=== PATIENT | male | born 1930 | race Caucasian/White ===

== ENCOUNTER 2016-09-09 17:36 | Inpatient (IN) | payer MEDICARE ==
[2016-09-09 18:38] LABS: BASO # 0.1 K/uL (0.0-0.2); BASO % 0.6 % (0.0-2.0); EOS # 0.1 K/uL (0.0-0.7); EOS % 0.9 % (0.0-4.0); HEMOGLOBIN 15.1 g/dL (12.0-18.0); LYMPH # 0.9 K/uL (1.0-4.3); MEAN CELL VOLUME 84.4 fl (80.0-94.0); MEAN CORPUSCULAR HEMOGLOBIN 29.1 pg (27.0-31.0); MEAN CORPUSCULAR HGB CONC 34.5 g/dL (33.0-37.0); MEAN PLATELET VOLUME 8.8 fl (7.2-11.7); MONO # 0.8 K/uL (0.0-0.8); MONO % 9.8 % (0.0-10.0); NEUT # 6.8 K/uL (1.8-7.0); NEUT % 78.7 % (50.0-75.0); NRBC % 0.2 % (0.0-0.0); RBC 5.2 Mil/uL (4.40-5.90); RED CELL DISTRIBUTION WIDTH 14.6 % (11.5-14.5); WHITE BLOOD COUNT 8.6 K/uL (4.8-10.8)
[2016-09-09 18:55] LABS: ALB/GLOB RATIO 1.3 (1.0-2.1); ALBUMIN 4.2 g/dL (3.5-5.0); ALT/SGPT 30 U/L (21-72); AST/SGOT 13 U/L (17-59); BLOOD UREA NITROGEN 22 mg/dl (9-20); CALCIUM 9.2 mg/dL (8.4-10.2); GFR AFRICAN-AMERICAN > 60; GFR NON-AFRICAN AMERICAN > 60
[2016-09-09 19:06] LABS: INR 1.2 (0.9-1.2); PARTIAL THROMBOPLASTIN TIME 38.3 Seconds (25.6-37.1); PROTHROMBIN TIME 13.7 Seconds (9.8-13.1)
--- NOTE | 2016-09-09 19:15 | ED PDOC ---
HPI: Altered Mental Status Time Seen by Provider: 09/09/16 18:07 Chief Complaint (Nursing): Altered Mental Status Chief Complaint (Provider): Altered mental status History Per: EMS History/Exam Limitations: Clinical Condition Onset Of Symptoms: Cannot Confirm Onset Additional Complaint(s): The patient is a 87yo male, brought in by EMS for evaluation after discovering the patient wandering and unable to give his name or history. EMS serve as primary historian and are unable to provide medical history, family history and social history. HPI is limited due to clinical condition. Past Medical History Reviewed: Unable To Obtain Vital Signs: Last Vital Signs Temp 97.6 F 09/09/16 18:16 Pulse 86 09/09/16 18:16 Resp 18 09/09/16 18:16 BP 142/64 09/09/16 18:16 Pulse Ox 98 09/09/16 18:16 - Family History Family History: States: Unknown Family Hx - Home Medications Home Medications: Ambulatory Orders Medication Instructions Recorded Unobtainable 09/09/16 - Allergies Allergies/Adverse Reactions: Allergies Allergy/AdvReac Type Severity Reaction Status Date / Time No Known Allergies Allergy Verified 09/09/16 23:49 Review of Systems Review Of Systems: ROS cannot be obtained secondary to pt's inabilty to answer questions. Physical Exam - Reviewed Nursing Documentation Reviewed: Yes Vital Signs Reviewed: Yes - Physical Exam Appears: Positive for: Well (no signs of gross trauma) Cardiovascular/Chest: Positive for: Chest Non Tender Respiratory: Positive for: Normal Breath Sounds Gastrointestinal/Abdominal: Negative for: Tenderness, Guarding Extremity: Positive for: Normal ROM. Negative for: Deformity Neurologic/Psych: Positive for: Alert, Oriented ( x 0), Gait (steady) - Laboratory Results Result Diagrams: 09/10/16 11:20 09/10/16 11:28 - ECG O2 Sat by Pulse Oximetry: 98 Medical Decision Making Medical Decision Making: Time: 1806 Impression: Altered mental status Plan: -- CT head -- Labs -- EKG Reassess Time: 1899 Patient to be signed out to Dr. Vidales pending ED workup. Scribe Attestation: Documented by Marry Hodges acting as a scribe for Randell Mohan DO. Provider Attestation: All medical record entries made by the Scribe were at my direction and personally dictated by me. I have reviewed the chart and agree that the record accurately reflects my personal performance of the history, physical exam, medical decision making, and the department course for this patient. I have also personally directed, reviewed, and agree with the discharge instructions and disposition. Disposition - Clinical Impression Clinical Impression: Acute on chronic intracranial subdural hematoma, Altered mental status - Patient ED Disposition Is Patient to be Admitted: Transfer of Care - Disposition Disposition: Transfer of Care Disposition Time: 19:00 Condition: SERIOUS Patient Signed Over To: Elmer Vidales Handoff Comments: pending imaging and workup/dispo
--- NOTE | 2016-09-09 20:09 | ED PDOC ---
- Laboratory Results Result Diagrams: 09/09/16 18:34 09/09/16 18:34 - ECG O2 Sat by Pulse Oximetry: 98 - Critical Care Total Time (In Min): 30 Medical Decision Making Medical Decision Making: Receiving sign out: Patient signed out to me by Dr. Mohan at 1900 pending ED workup. Scribe Attestation: Documented by Marry Hodges acting as a scribe for Elmer Vidales MD. Provider Attestation: All medical record entries made by the Scribe were at my direction and personally dictated by me. I have reviewed the chart and agree that the record accurately reflects my personal performance of the history, physical exam, medical decision making, and the department course for this patient. I have also personally directed, reviewed, and agree with the discharge instructions and disposition. Disposition - Clinical Impression Clinical Impression: Acute on chronic intracranial subdural hematoma, Altered mental status - POA Present On Arrival: None - Disposition Disposition: Admitted as In-Patient Disposition Time: 20:40 Condition: SERIOUS Progress Note - Review of Symptoms Events since last encounter: Time: 2025 CT Head FINDINGS: Brain: There is prominence of sulci gyri and ventricles. There is no midline shift. There is decreased attenuation in periventricular white matter. There are no focal masses. There is an acute on chronic right subdural hematoma. Maximum width is approximately 8.5 mm, image 40 series 4 There is a smaller left acute on chronic subdural hematoma. There are no intra-axial hemorrhages. Aguirre-white differentiation is visualized Ventricles: See above Bones: Cranial vault is intact. Soft tissues: unremarkable Sinuses: There is no acute sinusitis. There is mucoperiosteal thickening in the sinuses. Ears and mastoids: Middle ears and mastoids are unremarkable. Orbits: Orbital contents are unremarkable. IMPRESSION: Atrophy and small vessel disease; acute on chronic subdural hematomas right greater than left, no midline shift Call placed to neurosurgeon chemicals fermentation operator. Time: [address] Gonzalez and no acute intervention needed. Time: 2035 Dr. Crouch, patient's pcp was informed of patient's status, agrees with admission to ICU. Time: [address] Souza, who agrees with ICU admission.
--- NOTE | 2016-09-09 20:27 | CT ---
EXAM: CT Head Without Intravenous Contrast CLINICAL HISTORY: 87 years old, male; Signs and symptoms; Altered mental status/memory loss; Confusion or disorientation; Patient HX: ? ? ? ; Additional info: AMS. Patient was found wondering about TECHNIQUE: Axial computed tomography images of the head/brain without intravenous contrast. This CT exam was performed using one or more of the following dose reduction techniques: automated exposure control, adjustment of the mA and/or kV according to patient size, and/or use of iterative reconstruction technique. Coronal and sagittal reformatted images were created and reviewed. EXAM DATE/TIME: 09/09/2016 6:32 PM COMPARISON: There are no prior studies for comparison. FINDINGS: Brain: There is prominence of sulci gyri and ventricles. There is no midline shift. There is decreased attenuation in periventricular white matter. There are no focal masses. There is an acute on chronic right subdural hematoma. Maximum width is approximately 8.5 mm, image 40 series 4 There is a smaller left acute on chronic subdural hematoma. There are no intra-axial hemorrhages. Aguirre-white differentiation is visualized Ventricles: See above Bones: Cranial vault is intact. Soft tissues: unremarkable Sinuses: There is no acute sinusitis. There is mucoperiosteal thickening in the sinuses. Ears and mastoids: Middle ears and mastoids are unremarkable. Orbits: Orbital contents are unremarkable. IMPRESSION: Atrophy and small vessel disease; acute on chronic subdural hematomas right greater than left, no midline shift
--- NOTE | 2016-09-09 21:23 | CP.PCM.CON ---
History of Present Illness - History of Present Illness History of Present Illness: CC/Reason for ICU: AMS, ICH Patient confused and Yakut speaking; history via staff and from chart largely as patient does not provide much info HPI: This is an 86 y/o male who was brought in by EMS after being found wandering around confused outside. Patient does not complain of anything at this time, aside from not wanting BP cuff on. MHx/SHx: Unknown at this time, as patient cannot provide Allergies: U/k Medication list: unobtainable Family/Social Hx: unobtainable Surrogate Dec Mkr: Currently in process of contacting family Past Patient History - Past Social History Smoking Status: Unknown If Ever Smoked - PSYCHIATRIC Hx Substance Use: No Meds Allergies/Adverse Reactions: Allergies Allergy/AdvReac Type Severity Reaction Status Date / Time Unobtainable Allergy Verified 09/09/16 17:44 Physical Exam - Constitutional Appears: Confused - Head Exam Head Exam: ATRAUMATIC, NORMOCEPHALIC - Eye Exam Eye Exam: EOMI, PERRL - ENT Exam ENT Exam: Mucous Membranes Moist - Neck Exam Neck exam: Positive for: Full Rom - Respiratory Exam Respiratory Exam: Clear to Auscultation Bilateral, NORMAL BREATHING PATTERN - Cardiovascular Exam Cardiovascular Exam: REGULAR RHYTHM, +S1, +S2 - GI/Abdominal Exam GI & Abdominal Exam: Normal Bowel Sounds, Soft - Extremities Exam Extremities exam: Positive for: full ROM, normal inspection - Neurological Exam Additional comments: awake, follows some commands, but is confused; no gross motor deficits - Skin Skin Exam: Dry, Warm Results - Vital Signs Recent Vital Signs: Last Vital Signs Temp 97.5 F L 09/09/16 20:30 Pulse 77 09/09/16 21:04 Resp 18 09/09/16 21:04 BP 126/58 L 09/09/16 21:04 Pulse Ox 95 09/09/16 21:04 - Labs Result Diagrams: 09/09/16 18:34 09/09/16 18:34 - EKG Data EKG Interpreted by: Myself EKG shows normal: Sinus rhythm Rate: Normal - Impressions Impression: L axis deviation - Imaging and Cardiology CT scan - head Status: Image reviewed by me, Report reviewed by me (acute on chronic SDH; no mass effect, no midline shift) Assessment & Plan (1) SDH (subdural hematoma) Assessment and Plan: 86 y/o male with as yet unknown medical history presenting with confusion and found to have SDH. Currently, grossly neuro intact. -Admit ICU -Keep NPO for now, until more coherent -Serial neuro exams -Repeat CT in AM -Neurosurg consulted (Lisa notified by ER) -Maintain SBP < 140 -SCDs only for DVT PPx Status: Acute
[2016-09-09 23:33] LABS: SQUAMOUS EPITHIAL < 1 /hpf (0-5); URINE BACTERIA RARE (<OCC); URINE BILIRUBIN NEGATIVE (NEGATIVE); URINE BLOOD MODERATE (NEGATIVE); URINE CLARITY CLOUDY (Clear); URINE COLOR YELLOW (YELLOW); URINE GLUCOSE (UA) NEG (Normal); URINE HYALINE CAST 0-2 /hpf (0-2); URINE LEUKOCYTE ESTERASE NEG Leu/uL (Negative); URINE NITRATE NEGATIVE (NEGATIVE); URINE PROTEIN 30 mg/dL (NEGATIVE)
--- NOTE | 2016-09-10 01:23 | CP.PCM.PN ---
Subjective - Date & Time of Evaluation Date of Evaluation: 09/10/16 Time of Evaluation: 01:22 - Subjective Subjective: reviewed ct minimal alexia sdh significant atrophy these are too small to consider for evacuatiuon Objective - Vital Signs/Intake and Output Vital Signs (last 24 hours): Temp Pulse Resp BP Pulse Ox 96 F L 73 17 110/46 L 100 09/09/16 23:07 09/10/16 00:00 09/10/16 00:00 09/10/16 00:00 09/10/16 00:00 - Labs Labs: PT 13.7 Seconds (9.8-13.1) H 09/09/16 18:34 INR 1.2 (0.9-1.2) 09/09/16 18:34 APTT 38.3 Seconds (25.6-37.1) H 09/09/16 18:34
--- NOTE | 2016-09-10 10:08 | CARD ---
APPROVED REPORT EKG Measurement Heart [id number] FL 200P23 [id number] <Conclusion> Normal sinus rhythm Left axis deviation Moderate voltage criteria for LVH, may be normal variant Abnormal ECG
[2016-09-10 11:35] LABS: HEMOGLOBIN 13.3 g/dL (12.0-18.0); MEAN CELL VOLUME 83.9 fl (80.0-94.0); MEAN CORPUSCULAR HEMOGLOBIN 29.1 pg (27.0-31.0); MEAN CORPUSCULAR HGB CONC 34.7 g/dL (33.0-37.0); RBC 4.56 Mil/uL (4.40-5.90); RED CELL DISTRIBUTION WIDTH 14.8 % (11.5-14.5)
[2016-09-10 11:55] LABS: BLOOD UREA NITROGEN 20 mg/dl (9-20); CALCIUM 8.6 mg/dL (8.4-10.2); GFR AFRICAN-AMERICAN > 60; GFR NON-AFRICAN AMERICAN > 60
[2016-09-10 12:15] LABS: SQUAMOUS EPITHIAL 1 /hpf (0-5); URINE BACTERIA RARE (<OCC); URINE BILIRUBIN NEGATIVE (NEGATIVE); URINE BLOOD LARGE (NEGATIVE); URINE CLARITY CLOUDY (Clear); URINE COLOR AMBER (YELLOW); URINE GLUCOSE (UA) NEG (Normal); URINE LEUKOCYTE ESTERASE MOD Leu/uL (Negative); URINE NITRATE NEGATIVE (NEGATIVE); URINE PROTEIN 100 mg/dL (NEGATIVE)
--- NOTE | 2016-09-10 13:12 | CT ---
PROCEDURE: CT HEAD WITHOUT CONTRAST. HISTORY: ICH COMPARISON: None available. TECHNIQUE: Axial computed tomography images were obtained through the head/brain without intravenous contrast. Radiation dose: Total exam DLP = 1419.18 mGy-cm. This CT exam was performed using one or more of the following dose reduction techniques: Automated exposure control, adjustment of the mA and/or kV according to patient size, and/or use of iterative reconstruction technique. FINDINGS: HEMORRHAGE: There are bilateral acute on chronic convexity subdural hemorrhages, right greater than left. The right-sided subdural hemorrhage measures approximately 9 mm in width, unchanged from prior examination. This is measured from series 602, image 47. The left-sided subdural hemorrhage measures up to 6 mm as measured from series 602, image 42. Again, this is unchanged from prior. Please note that the angle of section for these 2 examinations is quite different comparison is somewhat limited. There is a small focal hemorrhage seen along the lateral aspect of the right temporal lobe (series 4, image 34). In retrospect, this is seen on prior examination. It is increased in attenuation and this is suggestive of acute focal hemorrhage. However, it has not increased in size from the prior examination. This may represent a small focal parenchymal contusion/hematoma. It is atypical in appearance for a subdural hemorrhage. BRAIN: No intracranial mass. Mild to moderate diffuse atrophy. Mild periventricular white matter lucency consistent with chronic microvascular ischemic change. VENTRICLES: Unremarkable. No hydrocephalus. CALVARIUM: Unremarkable. PARANASAL SINUSES: Mild chronic bilateral maxillary sinusitis. MASTOID AIR CELLS: Unremarkable as visualized. No inflammatory changes. OTHER FINDINGS: None. IMPRESSION: Stable bilateral acute on chronic convexity subdural hematomas. Slightly greater on the right than on the left. Small focal hemorrhage lateral aspect right temporal lobe, possibly parenchymal. This represents acute hemorrhage and is increased in attenuation when compared to the prior examination of 09/09/2016. However, it has not increased in size/extent from that examination. No other acute hemorrhage identified. Chronic involutional change. Chronic bilateral maxillary sinusitis.
--- NOTE | 2016-09-10 14:53 | CP.PCM.HP ---
History of Present Illness - History of Present Illness History of Present Illness: Mr. Granger is an 86 y/o male with PMH of htn severe OA. He was seen in my office less than 2 weeks ago for routine f/u. At that time he was AAOx3. He was who was brought in by EMS after being found wandering around confused outside. A CT scan reveled a SDH. At present he is confuse, AA. Present on Admission - Present on Admission Any Indicators Present on Admission: Yes Review of Systems - Constitutional Constitutional: As Per HPI - EENT Eyes: As Per HPI - Cardiovascular Cardiovascular: As Per HPI - Respiratory Respiratory: As Per HPI - Gastrointestinal Gastrointestinal: As Per HPI - Musculoskeletal Musculoskeletal: As Per HPI - Integumentary Integumentary: As Per HPI - Neurological Neurological: As Per HPI - Psychiatric Psychiatric: As Per HPI Past Patient History - Past Medical History & Family History Past Medical History?: Yes - Past Social History Smoking Status: Never Smoked - CARDIAC Hx Cardiac Disorders: Yes (HTN) Hx Hypertension: Yes - PULMONARY Hx Respiratory Disorders: No - NEUROLOGICAL Hx Neurological Disorder: No - HEENT Hx HEENT Problems: No - RENAL Hx Chronic Kidney Disease: No - ENDOCRINE/METABOLIC Hx Endocrine Disorders: No - HEMATOLOGICAL/ONCOLOGICAL Hx AIDS: No Hx Blood Transfusions: Yes Hx Blood Transfusion Reaction: No Hx Human Immunodeficiency Virus (HIV): No - INTEGUMENTARY Hx Dermatological Problems: No - MUSCULOSKELETAL/RHEUMATOLOGICAL Hx Musculoskeletal Disorders: Yes (Fall 2 wks ago) Hx Falls: Yes - GASTROINTESTINAL Hx Gastrointestinal Disorders: No - GENITOURINARY/GYNECOLOGICAL Hx Genitourinary Disorders: Yes (BPH) Hx Prostate Problems: Yes - PSYCHIATRIC Hx Substance Use: No - SURGICAL HISTORY Hx Surgeries: Yes Hx Herniorrhaphy: Yes (right groin) - ANESTHESIA Hx Anesthesia: Yes Hx Anesthesia Reactions: No Meds Allergies/Adverse Reactions: Allergies Allergy/AdvReac Type Severity Reaction Status Date / Time No Known Allergies Allergy Verified 09/09/16 23:49 Physical Exam - Constitutional Appears: Confused - Head Exam Head Exam: ATRAUMATIC, NORMAL INSPECTION, NORMOCEPHALIC - Eye Exam Eye Exam: Normal appearance - ENT Exam ENT Exam: Mucous Membranes Moist - Neck Exam Neck exam: Positive for: Normal Inspection - Respiratory Exam Respiratory Exam: Clear to Auscultation Bilateral - Cardiovascular Exam Cardiovascular Exam: REGULAR RHYTHM, +S1, +S2 - GI/Abdominal Exam GI & Abdominal Exam: Normal Bowel Sounds - Extremities Exam Extremities exam: Positive for: normal inspection - Neurological Exam Neurological exam: Altered Additional comments: Not cooperative with examination. Moves all limbs - Psychiatric Exam Psychiatric exam: Flat Affect - Skin Skin Exam: Normal Color Results - Vital Signs Recent Vital Signs: Last Vital Signs Temp 97.7 F 09/10/16 14:00 Pulse 67 09/10/16 14:00 Resp 24 09/10/16 14:00 BP 120/46 L 09/10/16 14:00 Pulse Ox 97 09/10/16 14:00 - Labs Result Diagrams: 09/10/16 11:20 09/10/16 11:28 Labs: Laboratory Results - last 24 hr 09/09/16 09/09/16 09/09/16 23:12 23:12 23:53 WBC RBC Hgb Hct MCV MCH MCHC RDW Plt Count Sodium Potassium Chloride Carbon Dioxide Anion Gap BUN Creatinine Est GFR ( Amer) Est GFR (Non-Af Amer) Random Glucose Calcium Ammonia Total Creatine Kinase Triglycerides Cholesterol LDL Cholesterol Direct HDL Cholesterol Amylase Lipase Prostate Specific Ag Vitamin B12 TSH 3rd Generation Urine Color Yellow Urine Clarity Cloudy Urine pH 6.0 Ur Specific [place] 1.019 Urine Protein 30 Urine Glucose (UA) Neg Urine Ketones 20 Urine Blood Moderate Urine Nitrate Negative Urine Bilirubin Negative Urine Urobilinogen 4.0 Ur Leukocyte Esterase Neg Urine RBC (Auto) 46 H Urine Microscopic WBC 3 Ur Squamous Epith Cells < 1 Urine Bacteria Rare Hyaline Casts 0-2 Blood Type A POSITIVE Blood Type Confirm A POSITIVE Antibody Screen Negative BBK History Checked No verified bt 09/10/16 09/10/16 09/10/16 11:19 11:20 11:20 WBC 8.0 RBC 4.56 Hgb 13.3 Hct 38.3 MCV 83.9 MCH 29.1 MCHC 34.7 RDW 14.8 H Plt Count 115 L D Sodium Potassium Chloride Carbon Dioxide Anion Gap BUN Creatinine Est GFR ( Amer) Est GFR (Non-Af Amer) Random Glucose Calcium Ammonia < 9 L Total Creatine Kinase 27 L Triglycerides 82 Cholesterol 70 LDL Cholesterol Direct 38 HDL Cholesterol 19 L Amylase 38 Lipase 16 L Prostate Specific Ag 3.18 Vitamin B12 276 TSH 3rd Generation 0.87 Urine Color Urine Clarity Urine pH Ur Specific [place] Urine Protein Urine Glucose (UA) Urine Ketones Urine Blood Urine Nitrate Urine Bilirubin Urine Urobilinogen Ur Leukocyte Esterase Urine RBC (Auto) Urine Microscopic WBC Ur Squamous Epith Cells Urine Bacteria Hyaline Casts Blood Type Blood Type Confirm Antibody Screen BBK History Checked 09/10/16 09/10/16 11:28 12:04 WBC RBC Hgb Hct MCV MCH MCHC RDW Plt Count Sodium 136 Potassium 4.0 Chloride 105 Carbon Dioxide 23 Anion Gap 12 BUN 20 Creatinine 0.7 L Est GFR ( Amer) > 60 Est GFR (Non-Af Amer) > 60 Random Glucose 123 H Calcium 8.6 Ammonia Total Creatine Kinase Triglycerides Cholesterol LDL Cholesterol Direct HDL Cholesterol Amylase Lipase Prostate Specific Ag Vitamin B12 TSH 3rd Generation Urine Color Bernadette Urine Clarity Cloudy Urine pH 5.0 Ur Specific [place] 1.023 Urine Protein 100 Urine Glucose (UA) Neg Urine Ketones Trace Urine Blood Large Urine Nitrate Negative Urine Bilirubin Negative Urine Urobilinogen 2.0 Ur Leukocyte Esterase Mod Urine RBC (Auto) 203 H Urine Microscopic WBC 58 H Ur Squamous Epith Cells 1 Urine Bacteria Rare Hyaline Casts Blood Type Blood Type Confirm Antibody Screen BBK History Checked Assessment & Plan (1) HTN (hypertension) Status: Chronic (2) Osteoarthritis Status: Chronic (3) Acute on chronic intracranial subdural hematoma Status: Acute (4) Altered mental status Status: Acute (5) SDH (subdural hematoma) Status: Acute - Assessment and Plan (Free Text) Plan: Continue present rx. Will follow neuro.
--- NOTE | 2016-09-10 15:09 | CP.CCUPN ---
CCU Subjective - Physician Review Events Since Last Encounter (Free Text): 09/10/16 15:13 The patient was Seen/interviewed and examined by me at the bedside during ICU round, Medical records reviewed and Management issues were discussed and formulated with the house staff. Mr. Granger is an 86 Years old Male with PMHx of HTN, severe OA, who was brought in to Emergency department after being found wandering around confused outside. Head CT scan revealed a SDH, Repeat this morning showing stable finding. Patient does not complain of anything at this time. Patient slightly confused but no headaches, vision changes, vertigo, double vision, dysphagia or trouble with word finding. 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 Slightly greater on the right than on the left. Small focal hemorrhage lateral aspect right temporal lobe, possibly parenchymal. This represents acute hemorrhage and is increased in attenuation when compared to the prior examination of 09/09/2016. However, it has not increased in size/extent from that examination. No other acute hemorrhage identified. Chronic involutional change. Chronic bilateral maxillary sinusitis. CCU Objective - Vital Signs / Intake & Output Vital Signs (Last 4 hours): Vital Signs Temp Pulse Resp BP Pulse Ox 09/10/16 14:00 97.7 F 67 24 120/46 L 97 Intake and Output (Last 8hrs): Intake & Output 09/10/16 09/10/16 09/10/16 06:59 14:59 22:59 Intake Total 240 Output Total 600 Balance -600 240 Intake: Oral 240 Output: Urine 600 Urethral (Valencia) 600 Other: # Bowel Movements 1 - Physical Exam Head: Positive for: Atraumatic, Normocephalic Pupils: Positive for: PERRL Extroacular Muscles: Positive for: EOMI Conjunctiva: Positive for: Normal Mouth: Positive for: Moist Mucous Membranes Neck: Positive for: Normal Range of Motion, Trachea Midline. Negative for: Meningeal Signs, MIDLINE TENDERNESS, Paraspinal Tenderness, JVD, Lymphadenopathy , Bruit, Other Respiratory/Chest: Positive for: Clear to Auscultation, Good Air Exchange. Negative for: Respiratory Distress, Accessory Muscle Use, Wheezes, Decreased Breath Sounds, Rales, Retracting, Rhonchi, Tachypneic, Tender to Palpation, Other Cardiovascular: Positive for: Regular Rate and Rhythm, Normal S1, S2, Peripheal Pulses Present. Negative for: Murmurs, Irregular Rhythm, Tachycardic, Bradycardic Abdomen: Negative for: Tenderness, Distention, Peritoneal Signs Neurological: Positive for: GCS=15, CN II-XII Intact, Speech Normal, Motor Func Grossly Intact, Normal Sensory Function Psychiatric: Positive for: Alert, Oriented x 3, Normal Insight, Normal Concentration - Medications Active Medications: Active Medications Generic Name Dose Route Start Last Admin Trade Name Freq PRN Reason Stop Dose Admin Docusate Sodium 100 mg 09/10/16 09:00 09/10/16 11:02 Colace PO 100 mg BID JAMAL Administration Famotidine 20 mg 09/10/16 09:00 09/10/16 11:01 Pepcid PO 20 mg BID JAMAL Administration - Patient Studies Lab Studies: Lab Studies 09/10/16 09/10/16 09/10/16 Range/Units 12:04 11:28 11:20 WBC (4.8-10.8) K/uL RBC (4.40-5.90) Mil/uL Hgb (12.0-18.0) g/dL Hct (35.0-51.0) % MCV (80.0-94.0) fl MCH (27.0-31.0) pg MCHC (33.0-37.0) g/dL RDW (11.5-14.5) % Plt Count (130-400) K/uL Sodium 136 (132-148) mmol/l Potassium 4.0 (3.6-5.0) MMOL/L Chloride 105 (98-107) mmol/L Carbon Dioxide 23 (22-30) mmol/L Anion Gap 12 (10-20) BUN 20 (9-20) mg/dl Creatinine 0.7 L (0.8-1.5) mg/dL Est GFR ( Amer) > 60 Est GFR (Non-Af Amer) > 60 Random Glucose 123 H (75-110) mg/dL Calcium 8.6 (8.4-10.2) mg/dL Ammonia < 9 L (16-60) umo/L Total Creatine Kinase (55-170) U/L Triglycerides (0-149) mg/DL Cholesterol (0-199) mg/dL LDL Cholesterol Direct (0-129) mg/dL HDL Cholesterol (30-70) MG/DL Amylase (30-110) U/L Lipase (23-300) U/L Prostate Specific Ag (0.00-4.0) ng/ML Vitamin B12 (239-931) pg/mL TSH 3rd Generation (0.46-4.68) mIU/ML Urine Color Bernadette (YELLOW) Urine Clarity Cloudy (Clear) Urine pH 5.0 (5.0-8.0) Ur Specific [place] 1.023 (1.003-1.030) Urine Protein 100 (NEGATIVE) mg/dL Urine Glucose (UA) Neg (Normal) mg/dL Urine Ketones Trace (NEGATIVE) mg/dL Urine Blood Large (NEGATIVE) Urine Nitrate Negative (NEGATIVE) Urine Bilirubin Negative (NEGATIVE) Urine Urobilinogen 2.0 (0.2-1.0) mg/dL Ur Leukocyte Esterase Mod (Negative) Pina/uL Urine RBC (Auto) 203 H (0-3) /hpf Urine Microscopic WBC 58 H (0-5) /hpf Ur Squamous Epith Cells 1 (0-5) /hpf Urine Bacteria Rare (<OCC) Hyaline Casts (0-2) /hpf Blood Type Blood Type Confirm Antibody Screen BBK History Checked 09/10/16 09/10/16 09/09/16 Range/Units 11:20 11:19 23:53 WBC 8.0 (4.8-10.8) K/uL RBC 4.56 (4.40-5.90) Mil/uL Hgb 13.3 (12.0-18.0) g/dL Hct 38.3 (35.0-51.0) % MCV 83.9 (80.0-94.0) fl MCH 29.1 (27.0-31.0) pg MCHC 34.7 (33.0-37.0) g/dL RDW 14.8 H (11.5-14.5) % Plt Count 115 L D (130-400) K/uL Sodium (132-148) mmol/l Potassium (3.6-5.0) MMOL/L Chloride (98-107) mmol/L Carbon Dioxide (22-30) mmol/L Anion Gap (10-20) BUN (9-20) mg/dl Creatinine (0.8-1.5) mg/dL Est GFR ( Amer) Est GFR (Non-Af Amer) Random Glucose (75-110) mg/dL Calcium (8.4-10.2) mg/dL Ammonia (16-60) umo/L Total Creatine Kinase 27 L (55-170) U/L Triglycerides 82 (0-149) mg/DL Cholesterol 70 (0-199) mg/dL LDL Cholesterol Direct 38 (0-129) mg/dL HDL Cholesterol 19 L (30-70) MG/DL Amylase 38 (30-110) U/L Lipase 16 L (23-300) U/L Prostate Specific Ag 3.18 (0.00-4.0) ng/ML Vitamin B12 276 (239-931) pg/mL TSH 3rd Generation 0.87 (0.46-4.68) mIU/ML Urine Color (YELLOW) Urine Clarity (Clear) Urine pH (5.0-8.0) Ur Specific [place] (1.003-1.030) Urine Protein (NEGATIVE) mg/dL Urine Glucose (UA) (Normal) mg/dL Urine Ketones (NEGATIVE) mg/dL Urine Blood (NEGATIVE) Urine Nitrate (NEGATIVE) Urine Bilirubin (NEGATIVE) Urine Urobilinogen (0.2-1.0) mg/dL Ur Leukocyte Esterase (Negative) Pina/uL Urine RBC (Auto) (0-3) /hpf Urine Microscopic WBC (0-5) /hpf Ur Squamous Epith Cells (0-5) /hpf Urine Bacteria (<OCC) Hyaline Casts (0-2) /hpf Blood Type Blood Type Confirm A POSITIVE Antibody Screen BBK History Checked 09/09/16 09/09/16 Range/Units 23:12 23:12 WBC (4.8-10.8) K/uL RBC (4.40-5.90) Mil/uL Hgb (12.0-18.0) g/dL Hct (35.0-51.0) % MCV (80.0-94.0) fl MCH (27.0-31.0) pg MCHC (33.0-37.0) g/dL RDW (11.5-14.5) % Plt Count (130-400) K/uL Sodium (132-148) mmol/l Potassium (3.6-5.0) MMOL/L Chloride (98-107) mmol/L Carbon Dioxide (22-30) mmol/L Anion Gap (10-20) BUN (9-20) mg/dl Creatinine (0.8-1.5) mg/dL Est GFR ( Amer) Est GFR (Non-Af Amer) Random Glucose (75-110) mg/dL Calcium (8.4-10.2) mg/dL Ammonia (16-60) umo/L Total Creatine Kinase (55-170) U/L Triglycerides (0-149) mg/DL Cholesterol (0-199) mg/dL LDL Cholesterol Direct (0-129) mg/dL HDL Cholesterol (30-70) MG/DL Amylase (30-110) U/L Lipase (23-300) U/L Prostate Specific Ag (0.00-4.0) ng/ML Vitamin B12 (239-931) pg/mL TSH 3rd Generation (0.46-4.68) mIU/ML Urine Color Yellow (YELLOW) Urine Clarity Cloudy (Clear) Urine pH 6.0 (5.0-8.0) Ur Specific [place] 1.019 (1.003-1.030) Urine Protein 30 (NEGATIVE) mg/dL Urine Glucose (UA) Neg (Normal) mg/dL Urine Ketones 20 (NEGATIVE) mg/dL Urine Blood Moderate (NEGATIVE) Urine Nitrate Negative (NEGATIVE) Urine Bilirubin Negative (NEGATIVE) Urine Urobilinogen 4.0 (0.2-1.0) mg/dL Ur Leukocyte Esterase Neg (Negative) Pina/uL Urine RBC (Auto) 46 H (0-3) /hpf Urine Microscopic WBC 3 (0-5) /hpf Ur Squamous Epith Cells < 1 (0-5) /hpf Urine Bacteria Rare (<OCC) Hyaline Casts 0-2 (0-2) /hpf Blood Type A POSITIVE Blood Type Confirm Antibody Screen Negative BBK History Checked No verified bt Laboratory Results - last 24 hr 09/09/16 09/09/16 09/09/16 23:12 23:12 23:53 WBC RBC Hgb Hct MCV MCH MCHC RDW Plt Count Sodium Potassium Chloride Carbon Dioxide Anion Gap BUN Creatinine Est GFR ( Amer) Est GFR (Non-Af Amer) Random Glucose Calcium Ammonia Total Creatine Kinase Triglycerides Cholesterol LDL Cholesterol Direct HDL Cholesterol Amylase Lipase Prostate Specific Ag Vitamin B12 TSH 3rd Generation Urine Color Yellow Urine Clarity Cloudy Urine pH 6.0 Ur Specific Midway 1.019 Urine Protein 30 Urine Glucose (UA) Neg Urine Ketones 20 Urine Blood Moderate Urine Nitrate Negative Urine Bilirubin Negative Urine Urobilinogen 4.0 Ur Leukocyte Esterase Neg Urine RBC (Auto) 46 H Urine Microscopic WBC 3 Ur Squamous Epith Cells < 1 Urine Bacteria Rare Hyaline Casts 0-2 Blood Type A POSITIVE Blood Type Confirm A POSITIVE Antibody Screen Negative BBK History Checked No verified bt 09/10/16 09/10/16 09/10/16 11:19 11:20 11:20 WBC 8.0 RBC 4.56 Hgb 13.3 Hct 38.3 MCV 83.9 MCH 29.1 MCHC 34.7 RDW 14.8 H Plt Count 115 L D Sodium Potassium Chloride Carbon Dioxide Anion Gap BUN Creatinine Est GFR ( Amer) Est GFR (Non-Af Amer) Random Glucose Calcium Ammonia < 9 L Total Creatine Kinase 27 L Triglycerides 82 Cholesterol 70 LDL Cholesterol Direct 38 HDL Cholesterol 19 L Amylase 38 Lipase 16 L Prostate Specific Ag 3.18 Vitamin B12 276 TSH 3rd Generation 0.87 Urine Color Urine Clarity Urine pH Ur Specific [place]way Urine Protein Urine Glucose (UA) Urine Ketones Urine Blood Urine Nitrate Urine Bilirubin Urine Urobilinogen Ur Leukocyte Esterase Urine RBC (Auto) Urine Microscopic WBC Ur Squamous Epith Cells Urine Bacteria Hyaline Casts Blood Type Blood Type Confirm Antibody Screen BBK History Checked 09/10/16 09/10/16 11:28 12:04 WBC RBC Hgb Hct MCV MCH MCHC RDW Plt Count Sodium 136 Potassium 4.0 Chloride 105 Carbon Dioxide 23 Anion Gap 12 BUN 20 Creatinine 0.7 L Est GFR ( Amer) > 60 Est GFR (Non-Af Amer) > 60 Random Glucose 123 H Calcium 8.6 Ammonia Total Creatine Kinase Triglycerides Cholesterol LDL Cholesterol Direct HDL Cholesterol Amylase Lipase Prostate Specific Ag Vitamin B12 TSH 3rd Generation Urine Color Bernadette Urine Clarity Cloudy Urine pH 5.0 Ur Specific [place]way 1.023 Urine Protein 100 Urine Glucose (UA) Neg Urine Ketones Trace Urine Blood Large Urine Nitrate Negative Urine Bilirubin Negative Urine Urobilinogen 2.0 Ur Leukocyte Esterase Mod Urine RBC (Auto) 203 H Urine Microscopic WBC 58 H Ur Squamous Epith Cells 1 Urine Bacteria Rare Hyaline Casts Blood Type Blood Type Confirm Antibody Screen BBK History Checked Fingerstick Blood Sugar Results: 105 Review of Systems - Cardiovascular Cardiovascular: absent: As Per HPI, Acrocyanosis, Chest Pain, Chest Pain at Rest , Chest Pain with Activity, Claudication, Diaphoresis, Dyspnea, Dyspnea on Exertion, Edema, Irregular Heart Rhythm, Pain Radiating to Arm/Neck/Jaw, Leg Edema, Leg Ulcers, Lightheadedness, Orthopnea, Palpitations, Paroxysmal Nocturnal Dyspnea, Pedal Edema, Radiating Pain, Rapid Heart Rate, Slow Heart Rate, Syncope, Other, UNREMARKABLE - Respiratory Respiratory: absent: As Per HPI, Cough, Dyspnea, Hemoptysis, Dyspnea on Exertion , Wheezing, Snoring, Stridor, Pain on Inspiration, Chest Congestion, Excessive Mucous Production, Change in Mucous Color, Pain with Coughing, Other, UNREMARKABLE Critical Care Progress Note - Extremities/Vascular Does the Patient have a Central Venous Catheter?: No Does the Patient need a Central Venous Catheter?: No Does the Patient have a Valencia Catheter?: No Does the Patient need a Valencia Catheter?: No - Nutrition Nutrition: Nutrition Category Date Time Status Regular Diet [DIET] Diets 09/10/16 Breakfast Active Assessment/Plan (1) Acute on chronic intracranial subdural hematoma Current Visit: Yes Status: Acute (2) Altered mental status Current Visit: Yes Status: Acute (3) SDH (subdural hematoma) Current Visit: Yes Status: Acute (4) HTN (hypertension) Current Visit: Yes Status: Chronic (5) Osteoarthritis Current Visit: Yes Status: Chronic - Assessment and Plan (Free Text) Assessment: Will discuss with neurosurgery about the repeat head CT scan, if surgical intervention indicated then will consider transfer to telemetry Neuro consult, Frequent neuro check Tolerating PO diet, Maintain aspiration precautions Maintain SBP < 140 SCDs only for DVT PPx
--- NOTE | 2016-09-10 15:13 | US ---
HISTORY: R/O gallstones COMPARISON: None. TECHNIQUE: Sonographic evaluation of the right upper quadrant of the abdomen. FINDINGS: LIVER: Measures 16.6 cm in length. Normal echogenicity of the liver parenchyma. No mass. No intrahepatic bile duct dilatation. GALLBLADDER: Gallbladder is not identified and is either contracted or surgically absent. Clinically correlate. COMMON BILE DUCT: Measures 9.3 Mm mm. No stones. Moderately dilated. . PANCREAS: Unremarkable as visualized. No mass. No ductal dilatation. RIGHT KIDNEY: Measures 10.7 cm cm in length. Normal echogenicity. No calculus, mass, or hydronephrosis. AORTA: Obscured by bowel gas IVC: Obscured by bowel gas. OTHER FINDINGS: None . IMPRESSION: Consider prior cholecystectomy or contraction of gallbladder. The gallbladder is not identified. No intrahepatic biliary duct dilatation identified, however, the common bile duct measures 9.3mm without obvious choledocholithiasis as imaged. Further clinical correlation is advised.
--- NOTE | 2016-09-10 15:30 | RAD ---
HISTORY: r/o PNA COMPARISON: No prior. FINDINGS: LUNGS: No active pulmonary disease. PLEURA: No significant pleural effusion identified, no pneumothorax apparent. CARDIOVASCULAR: Normal. OSSEOUS STRUCTURES: No significant abnormalities. VISUALIZED UPPER ABDOMEN: Elevated left hemidiaphragm is noted from an indeterminate etiology. Further, surgical clips in the right upper quadrant abdomen. OTHER FINDINGS: None. IMPRESSION: No acute cardiopulmonary disease. Left hemidiaphragm appears elevated from indeterminate etiology. Yes
--- NOTE | 2016-09-10 16:24 | US ---
PROCEDURE: Bilateral duplex Doppler carotid arterial ultrasound examination HISTORY: SDH COMPARISON: Not available TECHNIQUE: Ultrasound examination of the carotid arteries was performed utilizing a linear array color Doppler transducer. FINDINGS: RIGHT CAROTID ARTERY: Mild atheromatous plaque with calcification in the carotid bulb. Peak systolic velocity measurements: ICA: 74.1 cm/sec CCA: 91.9 cm/sec ICA/CCA peak systolic velocity ratio: 0.8 Antegrade flow demonstrated in vertebral artery LEFT CAROTID ARTERY: Mild atheromatous plaque with calcification in the carotid bulb. Peak systolic velocity measurements: ICA: 95.3 cm/sec CCA: 1002.2 cm/sec Peak systolic velocity ratio: 0.9 Antegrade flow demonstrated in vertebral artery IMPRESSION: Less than 50 percent ICA stenosis bilaterally. Antegrade flow demonstrated in both vertebral arteries.
[2016-09-10 16:59] LABS: HEPATITIS B SURFACE AG NEGATIVE (NEGATIVE)
[2016-09-10 17:04] LABS: HEPATITIS A IGM NEGATIVE (NEGATIVE)
[2016-09-10 17:05] LABS: HEPATITIS B CORE AB NEGATIVE (NEGATIVE)
[2016-09-10 17:17] LABS: HEPATITIS C ANTIBODY NEGATIVE (NEGATIVE)
[2016-09-10 17:30] LABS: FOLATE 13.8 ng/mL
--- NOTE | 2016-09-10 18:27 | CON ---
DATE: 09/10/2016 CHIEF COMPLAINT: Confusion, status post subdural. HISTORY OF PRESENT ILLNESS: This is an 86-year-old man with past medical history of hypertension, severe osteoarthritis, who came to the hospital because he was found wandering around confused. A CT head was revealed and found to have bilateral acute on chronic subdural hemorrhages, right greater than left, but it was mostly 9 mm neurosurgery felt there was no neurosurgical intervention. Currently, he is following simple commands, he is mildly confused at baseline at this time. he is following simple commands, moving all extremities equally. No acute events overnight. He is mildly dehydrated. His blood pressures are currently stable. No focal weakness. Lower extremities have severe osteoarthritis. PAST MEDICAL HISTORY: Hypertension, osteoarthritis. REVIEW OF SYSTEMS: A 14-point review of system negative except in the HPI. FAMILY HISTORY: Noncontributory. SOCIAL HISTORY: No illicit drug use, smoking, or ETOH abuse. MEDICATIONS: Reviewed by nurse's reconciliation sheet. ALLERGIES: No known drug allergies. PHYSICAL EXAMINATION: GENERAL: The patient is seen up in bed in no acute distress. VITAL SIGNS: Temperature 97.9, pulse rate of 74, blood pressure 134/50, respiratory rate of 16, oxygen saturation 97% on room air. HEENT: Atraumatic and normocephalic. PERRLA. Extraocular muscles intact. NECK: Supple. No JVD. No adenopathy noted. LUNGS: Clear to auscultation. No adventitious sounds. HEART: S1 and S2, normal rate and rhythm. No murmurs, rubs, or gallops. ABDOMEN: Soft, nontender, nondistended. Bowel sounds present. EXTREMITIES: No clubbing, no cyanosis. Peripheral pulses 2+ felt bilaterally. NEUROLOGICAL: The patient is alert and oriented to person and place, not much to month or year. Recalled after five minutes 0/3. Potentially slow thought process. Cranial nerves II through XII intact. Motor exam: Slightly decreased tone throughout, moves all extremities equally. No pronator drift seen. Sensory exam: . Light touch is intact. Vibration is decreased in the toes. DTRs are 2+ throughout, 1+ at the knees and ankles. Gait deferred for now. Coordination [id number] intact. LABORATORY DATA: Sodium is 136, potassium 4, chloride 105, carbon dioxide 23, BUN of 20, creatinine 0.7, random glucose 123. ASSESSMENT AND PLAN: This is an 86-year-old man with history of severe osteoarthritis, hypertension, who came in for confusion, found to have acute on chronic subdurals bilaterally, right greater than left with no surgical intervention. Repeat CAT scan just showed a stable bilateral acute on chronic convexity subdural hematoma, slightly greater on the right than left, and small focal hemorrhage in lateral aspect of the right temporal lobe posterior parenchyma. At this time, neuro exam is currently nonfocal besides him having confusion, which is likely secondarily related to his acute on chronic subdural hematomas. RECOMMENDATIONS: At this time, I recommend: 1. Physical therapy for gait evaluation, possibly acute rehab. 2. Avoid hypotensive episodes, keep the blood pressure between 120 and 130 mmHg. 3. Avoid any antiplatelets for at least 2 weeks for acute onset of bleed. 4. Recommend thiamine 100 mg p.o. b.i.d. to spark up the brain. 5. Continue on current present medical management. Thank you for the consult. Nilesh Harry MD
--- NOTE | 2016-09-11 11:54 | CP.PCM.PN ---
Subjective - Date & Time of Evaluation Date of Evaluation: 09/11/16 Time of Evaluation: 11:54 - Subjective Subjective: Still confuse Objective - Vital Signs/Intake and Output Vital Signs (last 24 hours): Temp Pulse Resp BP Pulse Ox 97.4 F L 66 18 125/53 L 96 09/11/16 08:34 09/11/16 08:34 09/11/16 08:34 09/11/16 08:34 09/11/16 08:34 Intake and Output: 09/10/16 09/11/16 23:59 11:59 Intake Total 240 Output Total 400 Balance -160 - Medications Medications: Current Medications Docusate Sodium (Colace) 100 mg PO BID [facility] Last Admin: 09/11/16 10:43 Dose: 100 mg Famotidine (Pepcid) 20 mg PO BID [facility] Last Admin: 09/11/16 10:43 Dose: 20 mg Thiamine HCl (Vitamin B1 Tab) 100 mg PO BID [facility] Last Admin: 09/11/16 10:44 Dose: 100 mg - Labs Labs: 09/10/16 11:20 09/10/16 11:28 PT 13.7 Seconds (9.8-13.1) H 09/09/16 18:34 INR 1.2 (0.9-1.2) 09/09/16 18:34 APTT 38.3 Seconds (25.6-37.1) H 09/09/16 18:34 - Constitutional Appears: Chronically Ill - Head Exam Head Exam: NORMAL INSPECTION - Eye Exam Eye Exam: Normal appearance - ENT Exam ENT Exam: Mucous Membranes Moist - Neck Exam Neck Exam: Full ROM - Respiratory Exam Respiratory Exam: Clear to Ausculation Bilateral - Cardiovascular Exam Cardiovascular Exam: REGULAR RHYTHM, +S1, +S2 - GI/Abdominal Exam GI & Abdominal Exam: Normal Bowel Sounds - Neurological Exam Neurological Exam: Altered - Psychiatric Exam Psychiatric exam: Flat Affect - Skin Skin Exam: Normal Color Assessment and Plan (1) HTN (hypertension) Status: Chronic (2) Osteoarthritis Status: Chronic (3) Acute on chronic intracranial subdural hematoma Status: Acute (4) Altered mental status Status: Acute (5) SDH (subdural hematoma) Status: Acute - Assessment and Plan (Free Text) Plan: Continue present rx For sub acute if meteorologically stable
--- NOTE | 2016-09-11 12:26 | PQF GENQUE ---
Dr. Crouch, In agreement with cotton ball bagger: 09/09 note: pressure ulcer assessment: rt. lower donovan: partial thickness loss of dermis presenting as a shallow ulcer and left buttock: partial thickness loss of dermis presenting as a shallow ulcer OR: Disagree OR:Other explanation of clinical finding 09/10 Wound RN note: Unable to examine, not in room. This form is a permanent part of the medical record Clarification of your documentation is requested to better reflect the severity of illness and intensity of treatment of your patient. Indicators present [x] Specify: [stage 2 decubitus ulcer] [] Specify: [] [] Specify: [] [] Specify: [] Location in the medical record that reflects the above clinical findings: [] Treatment Provided: [] PHYSICIAN'S RESPONSE Based on your medical judgment of the clinical indicators outlined above please clarify the following: [x] Practitioner response [] If unable to determine, please check the box, sign and date. Present On Admission (POA) Indicator: [x] Present at the time of admission [] Not present at the time of admission [] Clinically Undetermined In responding to this query, please exercise your independent professional judgment. The fact that a question is asked does not imply that any particular answer is desired or expected. Thank you for your clarification on this documentation. If you have any questions please call. * Thank you, Aubrie Saldaña RN BSN ext. #[phone] MTDD
[2016-09-12 08:21] VITALS: O2SAT 95
[2016-09-12] MEDS ORDERED: Proshield Plus GEL TOP SCH (10:15)
--- NOTE | 2016-09-12 10:45 | CP.PCM.DIS ---
Provider - Provider Date of Admission: 09/09/16 20:39 Attending physician: Luis Crouch MD Consults: 09/10/16 00:02 Nursing Referral for Wound Care Routine Comment: Physician Instructions: Reason For Exam: Pressure ulcer 09/11/16 18:11 Wound Care [Nursing Referral for Wound Care] Routine Comment: Physician Instructions: Reason For Exam: sacral excoriation w/small opening on left buttock Time Spent in preparation of Discharge (in minutes): 30 Diagnosis - Discharge Diagnosis (1) HTN (hypertension) Status: Chronic (2) Osteoarthritis Status: Chronic (3) Acute on chronic intracranial subdural hematoma Status: Acute (4) Altered mental status Status: Acute (5) SDH (subdural hematoma) Status: Acute Hospital Course - Lab Results Lab Results: Micro Results 09/09/16 23:10 Naris MRSA Culture (Admit) - Final MRSA NOT DETECTED 09/09/16 23:12 Urine,Catheterized Urine Culture - Final No Growth (<1,000 CFU/ML) Most Recent Lab Values WBC 8.0 K/uL (4.8-10.8) 09/10/16 11:20 RBC 4.56 Mil/uL (4.40-5.90) 09/10/16 11:20 Hgb 13.3 g/dL (12.0-18.0) 09/10/16 11:20 Hct 38.3 % (35.0-51.0) 09/10/16 11:20 MCV 83.9 fl (80.0-94.0) 09/10/16 11:20 MCH 29.1 pg (27.0-31.0) 09/10/16 11:20 MCHC 34.7 g/dL (33.0-37.0) 09/10/16 11:20 RDW 14.8 % (11.5-14.5) H 09/10/16 11:20 Plt Count 115 K/uL (130-400) L D 09/10/16 11:20 MPV 8.8 fl (7.2-11.7) 09/09/16 18:34 Neut % (Auto) 78.7 % (50.0-75.0) H 09/09/16 18:34 Lymph % (Auto) 10.0 % (20.0-40.0) L 09/09/16 18:34 [place] % (Auto) 9.8 % (0.0-10.0) 09/09/16 18:34 Eos % (Auto) 0.9 % (0.0-4.0) 09/09/16 18:34 Baso % (Auto) 0.6 % (0.0-2.0) 09/09/16 18:34 Neut # 6.8 K/uL (1.8-7.0) 09/09/16 18:34 Lymph # 0.9 K/uL (1.0-4.3) L 09/09/16 18:34 [place] # 0.8 K/uL (0.0-0.8) 09/09/16 18:34 Eos # 0.1 K/uL (0.0-0.7) 09/09/16 18:34 Baso # 0.1 K/uL (0.0-0.2) 09/09/16 18:34 PT 13.7 Seconds (9.8-13.1) H 09/09/16 18:34 INR 1.2 (0.9-1.2) 09/09/16 18:34 APTT 38.3 Seconds (25.6-37.1) H 09/09/16 18:34 Sodium 136 mmol/l (132-148) 09/10/16 11:28 Potassium 4.0 MMOL/L (3.6-5.0) 09/10/16 11:28 Chloride 105 mmol/L (98-107) 09/10/16 11:28 Carbon Dioxide 23 mmol/L (22-30) 09/10/16 11:28 Anion Gap 12 (10-20) 09/10/16 11:28 BUN 20 mg/dl (9-20) 09/10/16 11:28 Creatinine 0.7 mg/dL (0.8-1.5) L 09/10/16 11:28 Est GFR ( Amer) > 60 09/10/16 11:28 Est GFR (Non-Af Amer) > 60 09/10/16 11:28 POC Glucose (mg/dL) 105 mg/dL (65-110) 09/09/16 18:18 Random Glucose 123 mg/dL (75-110) H 09/10/16 11:28 Hemoglobin A1c 5.1 % (4.2-6.5) 09/10/16 11:20 Calcium 8.6 mg/dL (8.4-10.2) 09/10/16 11:28 Total Bilirubin 2.8 mg/dl (0.2-1.3) H 09/09/16 18:34 AST 13 U/L (17-59) L 09/09/16 18:34 ALT 30 U/L (21-72) 09/09/16 18:34 Alkaline Phosphatase 105 U/L (38-126) 09/09/16 18:34 Ammonia < 9 umo/L (16-60) L 09/10/16 11:20 Total Creatine Kinase 27 U/L (55-170) L 09/10/16 11:19 Troponin I < 0.0120 ng/mL (0.00-0.120) 09/09/16 18:34 Total Protein 7.3 G/DL (6.3-8.2) 09/09/16 18:34 Albumin 4.2 g/dL (3.5-5.0) 09/09/16 18:34 Globulin 3.1 gm/dL (2.2-3.9) 09/09/16 18:34 Albumin/Globulin Ratio 1.3 (1.0-2.1) 09/09/16 18:34 Triglycerides 82 mg/DL (0-149) 09/10/16 11:19 Cholesterol 70 mg/dL (0-199) 09/10/16 11:19 LDL Cholesterol Direct 38 mg/dL (0-129) 09/10/16 11:19 HDL Cholesterol 19 MG/DL (30-70) L 09/10/16 11:19 Amylase 38 U/L (30-110) 09/10/16 11:19 Lipase 16 U/L (23-300) L 09/10/16 11:19 Prostate Specific Ag 3.18 ng/ML (0.00-4.0) 09/10/16 11:19 Vitamin B12 276 pg/mL (239-931) 09/10/16 11:19 Folate 13.8 ng/mL 09/10/16 11:19 TSH 3rd Generation 0.87 mIU/ML (0.46-4.68) 09/10/16 11:19 Urine Color Bern[place] (YELLOW) 09/10/16 12:04 Urine Clarity Cloudy (Clear) 09/10/16 12:04 Urine pH 5.0 (5.0-8.0) 09/10/16 12:04 Ur Specific [place] 1.023 (1.003-1.030) 09/10/16 12:04 Urine Protein 100 mg/dL (NEGATIVE) 09/10/16 12:04 Urine Glucose (UA) Neg mg/dL (Normal) 09/10/16 12:04 Urine Ketones Trace mg/dL (NEGATIVE) 09/10/16 12:04 Urine Blood Large (NEGATIVE) 09/10/16 12:04 Urine Nitrate Negative (NEGATIVE) 09/10/16 12:04 Urine Bilirubin Negative (NEGATIVE) 09/10/16 12:04 Urine Urobilinogen 2.0 mg/dL (0.2-1.0) 09/10/16 12:04 Ur Leukocyte Esterase Mod Pina/uL (Negative) 09/10/16 12:04 Urine RBC (Auto) 203 /hpf (0-3) H 09/10/16 12:04 Urine Microscopic WBC 58 /hpf (0-5) H 09/10/16 12:04 Ur Squamous Epith Cells 1 /hpf (0-5) 09/10/16 12:04 Urine Bacteria Rare (<OCC) 09/10/16 12:04 Hyaline Casts 0-2 /hpf (0-2) 09/09/16 23:12 Alcohol, Quantitative < 10 mg/dl (0-10) 09/09/16 18:34 Rheum Arthritis Panel Negative (NEGATIVE) 09/10/16 11:19 ANJELICA Screen Negative (Negative) 09/10/16 11:19 RPR Nonreactive (NONREACTIVE) 09/10/16 11:19 Hepatitis A IgM Ab Negative (NEGATIVE) 09/10/16 11:19 Hep Bs Antigen Negative (NEGATIVE) 09/10/16 11:19 Hep B Core IgM Ab Negative (NEGATIVE) 09/10/16 11:19 Hepatitis C Antibody Negative (NEGATIVE) 09/10/16 11:19 Blood Type A POSITIVE 09/09/16 23:12 Blood Type Confirm A POSITIVE 09/09/16 23:53 Antibody Screen Negative 09/09/16 23:12 BBK History Checked No verified bt 09/09/16 23:12 - Hospital Course Hospital Course: Patient stable during hospitalization. Will dc to SNF for rehab. F/U CT scan of the head in 10 days. Discharge Exam - Head Exam Head Exam: NORMAL INSPECTION - Eye Exam Eye Exam: Normal appearance Pupil Exam: NORMAL ACCOMODATION - Respiratory Exam Respiratory Exam: Clear to PA & Lateral - Cardiovascular Exam Cardiovascular Exam: REGULAR RHYTHM, +S1, +S2 - GI/Abdominal Exam GI & Abdominal Exam: Normal Bowel Sounds - Neurological Exam Neurological exam: Altered - Psychiatric Exam Psychiatric exam: Normal Affect - Skin Skin Exam: Normal Color Discharge Plan - Follow Up Plan Condition: SERIOUS Disposition: REHAB FACILITY/REHAB UNIT
[2016-09-12 13:01] VITALS: BP 122/51; PULSE 78; RESP 18; TEMP 96.7
[2016-09-12] MEDS ORDERED: Fluticasone-Salmeterol 500-50mcg Diskus IH SCH (21:00)
[2016-09-13] MEDS ORDERED: Pantoprazole 40 mg EC Tab PO SCH (09:00)
== END 2016-09-12 14:30 | DRG 66 ==
LOC: EDBD 17:36 → H.ER 17:36 → H.ERHOLD 20:39 → H.ICU/CCU 23:06 → H.TEL 09-10 17:17
PROVIDERS: ADMIT Internal Medicine; ATTEND Internal Medicine
DX: I62.01 Nontraumatic acute subdural hemorrhage (principal); L89.322 Pressure ulcer of left buttock, stage 2; I10 Essential (primary) hypertension; I62.03 Nontraumatic chronic subdural hemorrhage; Z91.83 Wandering in diseases classified elsewhere; M19.90 Unspecified osteoarthritis, unspecified site; R41.0 Disorientation, unspecified; L89.892 Pressure ulcer of other site, stage 2